=== PATIENT | female | born 1955 | race Caucasian/White ===

== ENCOUNTER → 2021-03-26 | Outpatient (CLI) | payer MEDICARE, OTHER ==
[~2021-03-26] MED LIST: Aspirin EC81 MG PO; Azor 10-20 MG1 EACH PO; FOLBIC RF TABL1 EACH; LOSA25 PO; OSTERA TABLET1 EACH
[2021-03-30 12:08] LABS: LYME IGG/IGM AB <0.91 ISR (0.00-0.90)
== END | disposition home or self-care (01) ==
LOC: LAB SHORT 09:00 → LAB 09:00
PROVIDERS: Hospitalist
DX: R53.83 Other fatigue (principal)
CPT/HCPCS: 82533; 86618

== ENCOUNTER → 2023-03-10 | Outpatient (CLI) | payer MEDICARE, OTHER ==
[2023-03-10 15:48] LABS: Microalb/Creat Ratio UR, Rand 22.3 mg/g (0.000-30.000); Microalbumin, Random Urine 44.6 mg/L (0.000-20.000)
[2023-03-10 17:44] LABS: Anion Gap 3 mmol/L (6-16); Blood Urea Nitrogen 12 mg/dL (8-24); Bun/Creatinine Ratio 15.8 (12.0-20.0); CHOL/HDL RATIO 5.8; CO2, Blood 30 mmol/L (21-32); Calcium, Blood 8.7 mg/dL (8.5-10.1); Chloride, Blood 107 mmol/L (98-108); Cholesterol 193 mg/dL (50-200); Creatinine, Blood 0.76 mg/dL (0.40-1.00); Glomerular Filtration Rate 84 (60-); Glucose, Blood 119 mg/dL (70-99); HDL Cholesterol 33 mg/dL (>39); LDL/HDL RATIO 3.7; Low Density Lipoprotein Chol 121 mg/dL (0-110); Sodium, Blood 140 mmol/L (136-145); Triglycerides 193 mg/dL (30-160); Very Low Density Lipoprot Chol 38 mg/dL (6-32)
== END | disposition home or self-care (01) ==
LOC: LAB SHORT 08:20 → LAB 08:20
PROVIDERS: Hospitalist
DX: E11.69 Type 2 diabetes mellitus with other specified complication (principal); E78.2 Mixed hyperlipidemia; I10 Essential (primary) hypertension
CPT/HCPCS: 80048; 80061; 82043; 82570; 83036

== ENCOUNTER → 2025-03-26 | Outpatient (CLI) | payer MEDICARE ==
[2025-03-26 15:42] LABS: Anion Gap 2 mmol/L (3-11); Blood Urea Nitrogen 14 mg/dL (8-24); CHOL/HDL RATIO 6.0; CO2, Blood 35 mmol/L (21-32); Calcium, Blood 9.0 mg/dL (8.5-10.1); Chloride, Blood 104 mmol/L (98-108); Cholesterol 174 mg/dL (50-200); Creatinine, Blood 0.74 mg/dL (0.40-1.00); Glucose, Blood 117 mg/dL (70-99); HDL Cholesterol 29 mg/dL (>39); LDL/HDL RATIO 3.6; Low Density Lipoprotein Chol 105 mg/dL (0-110); Potassium, Blood 4.3 mmol/L (3.5-5.5); Sodium, Blood 137 mmol/L (136-145); Triglycerides 200 mg/dL (30-160); Very Low Density Lipoprot Chol 40 mg/dL (6-32)
[2025-03-26 21:39] LABS: Creatinine, Urine Random 204.0 mg/dL (27.00-270.00); Microalbumin, Random Urine 22.7 mg/L (0.000-20.000)
== END | disposition home or self-care (01) ==
LOC: LAB SHORT 12:18 → LAB 12:18
PROVIDERS: Hospitalist
DX: E11.69 Type 2 diabetes mellitus with other specified complication (principal); I10 Essential (primary) hypertension; E78.2 Mixed hyperlipidemia
CPT/HCPCS: 80048; 80061; 82043; 82570; 83036